=== PATIENT | male | born 1945 | race Caucasian/White ===

== ENCOUNTER 2017-05-22 07:00 | Day surgery (SDC) | payer OTHER, MEDICARE ==
[~2017-05-22] VITALS: Ht 177.8 cm; Wt 165.0 kg
[~2017-05-22 07:00] MED LIST: ASPIR 8181 M1 PO; CADUET 5/201 TABLET PO; LASIX40 MG PO; MEN'S ONE DAIL1 EACH PO; METRO CREAM 0.745 GM TP; PRILOSEC20 MG PO; VITAMIN D-32000 UNI2 PO; ZESTRIL10 MG PO
[2017-05-22] MEDS ORDERED: ADVIL,NUPRIN,M200 MG PO (07:42)
[2017-05-22 07:52] VITALS: BP 153/70
[2017-05-22 07:52] LABS: HEMATOCRIT 45.6 % (38.0-50.0); MCH 29.5 PG (29.0-34.0); MCHC 32.2 G/DL (30.0-36.0); MCV 91.6 FL (86-99); MEAN PLAT.VOLUME 10.2 uM^3 (9.0-12.4); PLATELET COUNT 273 K/uL (156-360); RBC DIS.WIDTH-CV 13.4 % (11.8-14.6); RBC DIS.WIDTH-SD 45.2 % (39-53); RED BLOOD COUNT 4.98 M/uL (4.00-5.50); WHITE BLOOD COUNT 9.1 K/uL (4.1-10.2)
[2017-05-22 08:03] LABS: ANION GAP 8 MEQ/L (2-14); CHLORIDE 106 MEQ/L (99-109); SAMPLE HEMOLYSIS CHECK 0; SAMPLE ICTERIC CHECK 0; SAMPLE LIPEMIA CHECK 0; SODIUM 142 MEQ/L (136-147); TOTAL BILIRUBIN 0.8 MG/DL (0.0-1.0)
[2017-05-22 08:08] LABS: ALKALINE PHOSPHATASE 123 IU/L (3-129); GFR ESTIMATE (CALCULATED) > 59 mL/min/; GLUCOSE 101 mg/dL (70-99); UREA NITROGEN (BUN) 16 mg/dL (9-23)
[2017-05-22 11:35] VITALS: BP 144/84
[2017-05-22 12:10] VITALS: BP 145/69
== END 2017-05-22 12:26 | disposition home or self-care (01) ==
LOC: SDC 07:00
PROVIDERS: Ophthalmology
DX: H35.371 Puckering of macula, right eye (principal); H35.341 Macular cyst, hole, or pseudohole, right eye; I10 Essential (primary) hypertension; K21.9 Gastro-esophageal reflux disease without esophagitis; E78.00 Pure hypercholesterolemia, unspecified; E66.01 Morbid (severe) obesity due to excess calories; G47.33 Obstructive sleep apnea (adult) (pediatric); R00.0 Tachycardia, unspecified; Z79.82 Long term (current) use of aspirin
CPT/HCPCS: 80053; 85027; J0690; J1100; J2405; J2795